=== PATIENT | female | born 1955 | race Native Hawaiian/Other Pacific Islander ===

== ENCOUNTER 2018-05-13 08:35 | Outpatient (CLI) | payer SELFPAY | END 2018-05-13 08:36 | disposition home or self-care (01) | LOC: LAB 08:35 ==

== ENCOUNTER 2018-05-14 10:15 | Outpatient (CLI) | payer SELFPAY | END 2018-05-14 10:16 | disposition home or self-care (01) | LOC: LAB 10:15 ==